=== PATIENT | female | born 1955 | race African-American/Black ===

== ENCOUNTER 2018-08-19 14:56 | Observation (INO) ==
[2018-08-19] MEDS ORDERED: FAMOTIDINE 20 MG/2 ML VIAL IV STA (15:17)
[2018-08-19] MEDS ORDERED: diphenhydrAMINE 50 MG/1 ML VIAL IV STA (15:17)
[2018-08-19] MEDS ORDERED: diphenhydrAMINE 50 MG/1 ML VIAL ONE (15:17)
[2018-08-19] MEDS ORDERED: methylPREDNISolone SOD SUC 125 MG/2 ML VIAL IV STA (15:17)
[2018-08-19] MEDS ORDERED: EPINEPHrine 1 MG/ML VIAL ONE (15:17)
[2018-08-19] MEDS ORDERED: EPINEPHrine 1 MG/ML VIAL SUBCUT STA ×2 (15:17→17:01)
[2018-08-19] MEDS ORDERED: methylPREDNISolone SOD SUC 125 MG/2 ML VIAL ONE (15:18)
[2018-08-19] MEDS ORDERED: FAMOTIDINE 20 MG/2 ML VIAL IV ONE (15:18)
[2018-08-19] MEDS ORDERED: RACEPINEPHRINE 0.5 ML NEB RESP TX STA (15:33)
[2018-08-19] MEDS ORDERED: DEXTROSE 50% 25 GM/50 ML VIAL IV PRN (16:52)
[2018-08-19] MEDS ORDERED: GLUCAGON 1 MG VIAL IM PRN (16:52)
[2018-08-19] MEDS ORDERED: ONDANSETRON 4 MG/2 ML VIAL IV PRN (16:52)
[2018-08-19] MEDS ORDERED: hydrALAZINE 20 MG/1 ML VIAL IV PRN (16:57)
[2018-08-19 17:40] LABS: Calcium 9.2 MG/DL (8.5-10.1); Osmolality,Calculated 286.8 MOS/KG (273-304)
[2018-08-19] MEDS: ENOXAPARIN 40 MG/0.4 ML SYRINGE SUBCUT SCH (19:39)
[2018-08-19] MEDS: FAMOTIDINE 20 MG/2 ML VIAL IV SCH (19:51)
[2018-08-19] MEDS: methylPREDNISolone SOD SUC 40 MG/1 ML VIAL IV SCH (19:51)
[2018-08-19] MEDS: SODIUM CHLORIDE 0.9% 1,000 ML IV SCH (19:52)
[2018-08-19] MEDS: diphenhydrAMINE 50 MG/1 ML VIAL IV SCH (19:52)
[2018-08-19] MEDS: INSULIN REGULAR 100 UNIT/ML SUBCUT SCH (19:57)
[2018-08-20] MEDS: methylPREDNISolone SOD SUC 40 MG/1 ML VIAL IV SCH ×5 (00:44→23:32)
[2018-08-20] MEDS: INSULIN REGULAR 100 UNIT/ML SUBCUT SCH ×5 (00:45→23:32)
[2018-08-20] MEDS: diphenhydrAMINE 50 MG/1 ML VIAL IV SCH ×5 (00:45→23:32)
[2018-08-20 03:43] LABS: Basophils % 0.2 % (0.0-0.8); Hematocrit 36.7 VOL% (35.7-47.0); Hemoglobin 11.2 GM/DL (12.0-16.0); Immature Granulocytes % 0.5 %; Immature Granulocytes Absolute 0.05 #; Lymphocytes # 1.8 10*3/uL (1.4-4.0); Lymphocytes % 16.6 % (21.3-54.2); Mean Corpuscular HGB Conc 30.5 GM/DL (32-36); Monocytes % 1.6 % (1.7-12.7); Neutrophils % 81.1 % (38.7-73.9); Platelet Count 356 T/CUMM (130-400); Red Blood Count 4.32 MC/CUMM (3.8-5.5); Red Cell Distribution Width 15.9 % (9.3-17.3)
[2018-08-20 04:01] LABS: Calcium 9.2 MG/DL (8.5-10.1); Osmolality,Calculated 286.1 MOS/KG (273-304)
[2018-08-20] MEDS: SODIUM CHLORIDE 0.9% 1,000 ML IV SCH ×4 (05:08→21:10)
[2018-08-20] MEDS: FAMOTIDINE 20 MG/2 ML VIAL IV SCH ×2 (05:09→17:21)
[2018-08-20] MEDS: ENOXAPARIN 40 MG/0.4 ML SYRINGE SUBCUT SCH (17:21)
[2018-08-20 18:03] VITALS: BP 131/76
[2018-08-21] MEDS: SODIUM CHLORIDE 0.9% 1,000 ML IV SCH (05:10)
[2018-08-21] MEDS: FAMOTIDINE 20 MG/2 ML VIAL IV SCH (06:08)
[2018-08-21] MEDS: methylPREDNISolone SOD SUC 40 MG/1 ML VIAL IV SCH ×2 (06:08→11:01)
[2018-08-21] MEDS: diphenhydrAMINE 50 MG/1 ML VIAL IV SCH (06:08)
[2018-08-21] MEDS: INSULIN REGULAR 100 UNIT/ML SUBCUT SCH (06:09)
== END 2018-08-21 11:22 | disposition home or self-care (01) ==
LOC: N.ED 14:56 → N.EDINP 14:56 → SUATTDRO 19:38 → SUPCPDRO 19:38 → N.EDINP 21:22 → N.CC 21:39
PROVIDERS: ADMIT Hospitalist; ATTEND Internal Medicine

== ENCOUNTER 2022-03-11 16:05 | Observation (INO) ==
[2022-03-11 16:34] LABS: Basophils % 0.4 % (0.0-0.8); Eosinophils # 0.1 10*3/uL (0.0-0.87); Eosinophils % 1.8 % (0.00-10.9); Hematocrit 42.2 VOL% (35.7-47.0); Hemoglobin 13.1 GM/DL (12.0-16.0); Immature Granulocytes % 0.3 %; Immature Granulocytes Absolute 0.02 #; Lymphocytes # 3.6 10*3/uL (1.4-4.0); Lymphocytes % 46.2 % (21.3-54.2); Mean Corpuscular Volume 81.6 FL (87-102); Mean Platelet Volume 9.6 FL (9.6-12.0); Monocytes # 0.9 10*3/uL (0.11-0.8); Monocytes % 10.9 % (1.7-12.7); Neutrophils % 40.4 % (38.7-73.9); Platelet Count 414 T/CUMM (130-400); Red Blood Count 5.17 MC/CUMM (3.8-5.5); Red Cell Distribution Width 18.8 % (9.3-17.3); White Blood Count 7.8 T/CUMM (4-12)
[2022-03-11 17:03] LABS: Alanine Aminotransferase 49 U/L (13-56); Albumin 3.8 G/DL (3.4-5.0); Alkaline Phosphatase 122 U/L (45-117); Aspartate Amino Transferase 30 U/L (0-37); Bilirubin,Total < 0.39 MG/DL (0.20-1.00); Blood Urea Nitrogen 9 MG/DL (7-18); Calcium 8.6 MG/DL (8.5-10.1); Carbon Dioxide 29 MMOL/L (21-32); Chloride 110 MMOL/L (98-107); Glucose 134 MG/DL (74-106); Osmolality,Calculated 286.8 MOS/KG (273-304); Potassium 3.3 MMOL/L (3.5-5.1); Sodium 144 MMOL/L (136-145); Total Protein 7.9 G/DL (6.4-8.2)
[2022-03-11] MEDS ORDERED: GLUCAGON 1 MG VIAL IM PRN (19:23)
[2022-03-11] MEDS ORDERED: ONDANSETRON 4 MG/2 ML VIAL IV PRN (19:23)
[2022-03-11] MEDS ORDERED: DEXTROSE 10% 250 ML BAG IV PRN (19:23)
[2022-03-11] MEDS ORDERED: cloNIDine 0.1 MG TABLET PO PRN (19:29)
[2022-03-11] MEDS ORDERED: allopurinoL 100 MG TABLET PO PRN (19:29)
[2022-03-11] MEDS ORDERED: ENOXAPARIN 100 MG/ML SYRINGE SUBCUT SCH (19:30)
[2022-03-11] MEDS ORDERED: hydrALAZINE 20 MG/1 ML VIAL IV STA (19:31)
[2022-03-11] MEDS: LACTATED RINGERS 1,000 ML IV SCH (20:36)
[2022-03-11] MEDS: GABAPENTIN 300 MG CAPSULE PO SCH (21:47)
[2022-03-11] MEDS: METOPROLOL TARTRATE 50 MG TABLET PO SCH (21:47)
[2022-03-11] MEDS: INSULIN LISPRO 100 UNIT/ML SUBCUT SCH (21:48)
[2022-03-11] MEDS: ROSUVASTATIN 10 MG TABLET PO SCH (22:00)
[2022-03-12 05:48] LABS: Calcium 8.6 MG/DL (8.5-10.1); Osmolality,Calculated 286.8 MOS/KG (273-304); Potassium 3.5 MMOL/L (3.5-5.1)
[2022-03-12] MEDS: LACTATED RINGERS 1,000 ML IV SCH (05:54)
[2022-03-12] MEDS: INSULIN LISPRO 100 UNIT/ML SUBCUT SCH ×4 (07:23→20:25)
[2022-03-12] MEDS ORDERED: ASPIRIN EC 325 MG TABLET PO SCH (09:00)
[2022-03-12] MEDS ORDERED: amLODIPine 5 MG TABLET PO SCH (09:00)
[2022-03-12] MEDS ORDERED: GINKGO BILOBA LEAF EXTRACT 60 MG PO SCH (09:00)
[2022-03-12] MEDS ORDERED: amLODIPine 5 MG TABLET PO ONE (11:29)
[2022-03-12] MEDS ORDERED: POTASSIUM CHLORIDE 20 MEQ TABLET PO ONE (11:30)
[2022-03-12] MEDS ORDERED: MAGNESIUM SULF RIDER 2 GM/50 ML PREMIX IV PRN (12:43)
[2022-03-12] MEDS: PANTOPRAZOLE 40 MG TABLET PO SCH (14:00)
[2022-03-12] MEDS: CETIRIZINE 10 MG TABLET PO SCH (14:00)
[2022-03-12] MEDS: METOPROLOL TARTRATE 50 MG TABLET PO SCH ×2 (14:00→20:25)
[2022-03-12] MEDS: FUROSEMIDE 20 MG TABLET PO SCH (14:00)
[2022-03-12] MEDS: DAPAGLIFLOZIN 10 MG TABLET PO SCH (14:00)
[2022-03-12] MEDS: ESCITALOPRAM 10 MG TABLET PO SCH (14:00)
[2022-03-12] MEDS: MULTIVITAMIN (CENTRUM) TABLET PO SCH (14:00)
[2022-03-12] MEDS: SODIUM CHLORIDE 0.9% 1,000 ML IV SCH ×2 (14:01→21:56)
[2022-03-12] MEDS: KETOROLAC 30 MG/1 ML VIAL IV PRN ×2 (14:50→22:27)
[2022-03-12] MEDS: ROSUVASTATIN 10 MG TABLET PO SCH (20:24)
[2022-03-12] MEDS: GABAPENTIN 300 MG CAPSULE PO SCH (20:25)
[2022-03-13 04:43] LABS: Basophils % 0.5 % (0.0-0.8); Eosinophils # 0.2 10*3/uL (0.0-0.87); Eosinophils % 2.3 % (0.00-10.9); Hematocrit 38.1 VOL% (35.7-47.0); Hemoglobin 11.7 GM/DL (12.0-16.0); Immature Granulocytes % 0.3 %; Immature Granulocytes Absolute 0.02 #; Lymphocytes % 46.1 % (21.3-54.2); Mean Corpuscular HGB Conc 30.7 GM/DL (32-36); Mean Corpuscular Volume 81.8 FL (87-102); Mean Platelet Volume 9.6 FL (9.6-12.0); Monocytes # 0.7 10*3/uL (0.11-0.8); Monocytes % 11.1 % (1.7-12.7); Neutrophils % 39.7 % (38.7-73.9); Platelet Count 344 T/CUMM (130-400); Red Blood Count 4.66 MC/CUMM (3.8-5.5); Red Cell Distribution Width 18.6 % (9.3-17.3); White Blood Count 6.6 T/CUMM (4-12)
[2022-03-13 04:54] LABS: INR 0.9; PT Patient Result 10.1 SECS (10.1-12.1); Partial Thromboplastin Time 29.6 SECS (23.7-32.9)
[2022-03-13 05:01] LABS: Calcium 8.8 MG/DL (8.5-10.1); Osmolality,Calculated 285.8 MOS/KG (273-304); Potassium 3.4 MMOL/L (3.5-5.1)
[2022-03-13 05:03] LABS: High Sensitive Troponin I* 10.2 ng/L (0-54)
[2022-03-13 05:13] LABS: Risk Ratio 1.84; Thyroid Stimulating Hormone 2.9 uIU/ml (0.358-3.74); VLDL Cholesterol 11.6 MG/DL
[2022-03-13] MEDS: SODIUM CHLORIDE 0.9% 1,000 ML IV SCH ×2 (06:00→17:09)
[2022-03-13] MEDS: POTASSIUM CHLORIDE RIDER 10 MEQ/100 ML PREMIX IV PRN ×2 (06:11→07:56)
[2022-03-13] MEDS: INSULIN LISPRO 100 UNIT/ML SUBCUT SCH ×4 (07:30→20:43)
[2022-03-13] MEDS ORDERED: POTASSIUM CHLORIDE 20 MEQ TABLET PO ONE (07:36)
[2022-03-13] MEDS ORDERED: amLODIPine 10 MG TABLET PO SCH (09:00)
[2022-03-13] MEDS: MULTIVITAMIN (CENTRUM) TABLET PO SCH (09:00)
[2022-03-13] MEDS ORDERED: ASPIRIN EC 81 MG TABLET PO SCH (09:00)
[2022-03-13] MEDS ORDERED: DIAZEPAM 5 MG TABLET PO ONE (10:00)
[2022-03-13] MEDS ORDERED: diphenhydrAMINE CAP 50 MG CAPSULE PO ONE (10:00)
[2022-03-13] MEDS ORDERED: MIDAZOLAM 2 MG/2 ML VIAL ONE (11:21)
[2022-03-13] MEDS ORDERED: fentaNYL 100 MCG/2 ML VIAL ONE (11:21)
[2022-03-13] MEDS ORDERED: GLUCAGON 1 MG VIAL IM PRN (11:51)
[2022-03-13] MEDS ORDERED: DEXTROSE 10% 250 ML BAG IV PRN (11:58)
[2022-03-13] MEDS ORDERED: ENOXAPARIN 40 MG/0.4 ML SYRINGE SUBCUT SCH (12:00)
[2022-03-13] MEDS: KETOROLAC 30 MG/1 ML VIAL IV PRN (13:25)
[2022-03-13] MEDS: DAPAGLIFLOZIN 10 MG TABLET PO SCH (13:26)
[2022-03-13] MEDS: METOPROLOL TARTRATE 50 MG TABLET PO SCH ×2 (13:26→20:43)
[2022-03-13] MEDS: PANTOPRAZOLE 40 MG TABLET PO SCH (13:26)
[2022-03-13] MEDS: ESCITALOPRAM 10 MG TABLET PO SCH (13:26)
[2022-03-13] MEDS: FUROSEMIDE 20 MG TABLET PO SCH (13:27)
[2022-03-13] MEDS: CETIRIZINE 10 MG TABLET PO SCH (13:27)
[2022-03-13] MEDS: ROSUVASTATIN 10 MG TABLET PO SCH (20:42)
[2022-03-13] MEDS: GABAPENTIN 300 MG CAPSULE PO SCH (20:43)
[2022-03-14] MEDS: SODIUM CHLORIDE 0.9% 1,000 ML IV SCH (01:34)
[2022-03-14 04:59] VITALS: BP 152/93
== END 2022-03-14 07:30 | disposition home or self-care (01) ==
LOC: N.EDINP 16:05 → N.ED 16:05 → SUATTDRO 19:23 → N.2W 20:21
PROVIDERS: ADMIT Internal Medicine; ATTEND Internal Medicine
PROC: CLCCHCL (ICD-10-PCS; 2022-03-13 10:15)